=== PATIENT | female | born 1985 | race Caucasian/White ===

== ENCOUNTER 2020-02-18 15:39 | Outpatient (CLI) | payer OTHER, SELFPAY ==
--- NOTE | ~2020-02-18 | XR_ITS ---
EXAMINATION: XR soft tissue neck DATE: 02/18/2020 16:09 INDICATION: Right neck pain and swelling. TECHNIQUE: 2 views of the neck soft tissues were obtained. COMPARISON: None. FINDINGS: The adenoids, palatine tonsils, prevertebral soft tissues, epiglottis, and airway are viridiana l. IMPRESSION: 1. Normal neck soft tissues. Reviewed, dictated and finalized at location A.
== END 2020-02-18 15:40 | disposition home or self-care (01) ==
LOC: CHSIMG 15:45
PROVIDERS: PCP Nurse Practitioner Family; Visit Provider Nurse Practitioner Family
DX: R22.1 Localized swelling, mass and lump, neck (principal)
CPT/HCPCS: 70360

== ENCOUNTER 2021-11-22 13:26 | Outpatient (CLI) | payer OTHER, SELFPAY ==
--- NOTE | ~2021-11-22 | US_ITS ---
EXAMINATION: US soft tissue head and neck DATE: 11/22/2021 13:58 INDICATION: Neck swelling. TECHNIQUE: Multiple ultrasound images of the thyroid were obtained. COMPARISON: None. FINDINGS: The right thyroid lobe measures 6.3 x 2.4 x 2.1 cm. The left thyroid lobe measures 5.9 x 2.0 x 1.8 c m. In the right thyroid lobe, there is a 3.3 cm mixed cystic and solid, hypoechoic, wider than tall nodule with smooth margin without echogenic foci (TI-RADS TR3). In the right thyroid lobe, there is a 2.2 cm solid, hypoechoic, wider than tall nodule with smooth margin without echogenic foci (TR4). In the left thyroid lobe, there is a 13 mm solid, hyperechoic, wider than tall nodule with macrocalcifi cation and ill-defined margin (TR4). IMPRESSION: 1. Multinodular goiter. Ultrasound-guided fine-needle aspiration of 2 nodules is recommended. Reviewed, dictated and finalized at location A. IMPRESSION: 1. Multinodular goiter. Ultrasound-guided fine-needle aspiration of 2 nodules i s recommended.
== END 2021-11-22 13:27 | disposition home or self-care (01) ==
LOC: CHSIMG 13:28
PROVIDERS: PCP Family Medicine; Visit Provider Nurse Practitioner Family
DX: R22.1 Localized swelling, mass and lump, neck (principal)
CPT/HCPCS: 76536

== ENCOUNTER 2022-01-10 14:32 | Outpatient (CLI) | payer OTHER, SELFPAY | END 2022-01-10 14:33 | disposition home or self-care (01) | LOC: CHSIMG 14:33 | PROVIDERS: PCP Nurse Practitioner Family; Visit Provider Nurse Practitioner Family | DX: R22.1 Localized swelling, mass and lump, neck (principal) | CPT/HCPCS: 99199 ==

== ENCOUNTER 2022-02-21 13:14 | Outpatient (CLI) | payer OTHER, SELFPAY ==
--- NOTE | ~2022-02-21 | US_ITS ---
CORRECTED REPORT added [place] 02[place]22[place]22 [facility] [place] report was recreated on 02/22/22. Original report was signed by Kahlil Ruiz M.D. on 02/21/2022 16:03 CDT EXAMINATION: US THYROID BIOPSY, US THYROID ADDITIONAL DATE: 02/21/2022 16:02 CDT INDICATION: Enlarged bilateral thyroid lobe nodules TECHNIQUE: The procedure for biopsy of the thyroid nodule and its benefits and risks were explained to the patient. Potential risk included were not limited to bleeding, infection, and nondiagnostic specimen. The neck was prepped and draped in the usual sterile manner. 3 cc 1% lidocaine was used for local anesthesia. 3 passes were made with a 25G needle into bilateral thyroid lesion. Appropriate needle location was documented with continuous sonographic guidance. The specimens were passed to the cytopathologist in the room. All needles were removed and a sterile bandage applied over the biopsy site. The patient tolerated the procedure without immediate complications or complaints. FINDINGS: Subsequent images demonstrate needles advanced into the bilateral lesions for biopsy. IMPRESSION: 1. Successful ultrasound guided biopsy of bilateral thyroid nodules. Please refer to pathology report for final histologic analysis. Reviewed, dictated and finalized at location A. MTDD IMPRESSION: 1. Successful ultrasound guided biopsy of bilateral thyroid nodules. Please r efer to pathology report for final histologic analysis.
== END 2022-02-21 13:15 | disposition home or self-care (01) ==
LOC: CHSIMG 13:16
PROVIDERS: PCP Nurse Practitioner Family; Visit Provider Nurse Practitioner Family
DX: E04.1 Nontoxic single thyroid nodule (principal)
CPT/HCPCS: 10005; 10006; 88173; 88305

== ENCOUNTER 2023-06-28 17:46 | Outpatient (CLI) | payer OTHER, SELFPAY ==
--- NOTE | ~2023-06-28 | XR_ITS ---
EXAMINATION: XR lumbar spine 2-3V DATE: 06/28/2023 18:05 INDICATION: Acute low back pain. Right-sided sciatica. TECHNIQUE: 3 views of lumbar spine were obtained. COMPARISON: None. FINDINGS: Bone alignment is normal. Vertebral body heights and intervertebral disc heights are normal . There are endplate osteophytes at multiple levels. There is multilevel mild facet joint osteoarthri tis. Surgical clips in the right upper quadrant are likely from cholecystectomy. IMPRESSION: 1. Mild lumbar spondylosis. Reviewed, dictated and finalized at location E. [employer] HUMAN SERVICES ASSISTANTS IMPRESSION: 1. Mild lumbar spondylosis.
--- NOTE | ~2023-06-28 | XR_ITS ---
EXAMINATION: XR sacroiliac joints min 3V DATE: 06/28/2023 18:05 INDICATION: Acute low back pain. Right-sided sciatica. TECHNIQUE: 3 views of the sacroiliac joints were obtained. COMPARISON: None. FINDINGS: Bone alignment is normal. No fracture. The sacroiliac joints are normal. There is mild oste oarthritis of the hips. IMPRESSION: 1. Normal sacroiliac joints. Reviewed, dictated and finalized at location E. NT ONBOARDING ANALYST
== END 2023-06-28 17:47 | disposition home or self-care (01) ==
LOC: CHSIMG 17:48
PROVIDERS: PCP Nurse Practitioner Family; Visit Provider Nurse Practitioner Family
DX: M54.41 Lumbago with sciatica, right side (principal); M43.06 Spondylolysis, lumbar region
CPT/HCPCS: 72100; 72202

== ENCOUNTER 2023-07-08 16:42 | Outpatient (RCR) | payer OTHER, SELFPAY ==
--- NOTE | 2023-07-09 07:17 | OPREHPOC ---
Outpatient Therapy Plan of Care This is a Multidisciplinary Plan of Care that may contain components documented by all disciplines (PT, OT, and ST.) PT Problem 1 PT Problem #1 Knowledge Deficit PT Goal 1 Goal The patient will be independent in a home exercise program to continue after discharge from skilled PT. Target Visit 6 PT Problem 2 PT Problem #2 Pain PT Goal 1 Goal The patient will report no greater than 2/ 10 low back pain with daily activities. Target Visit 12 PT Problem 3 PT Problem #3 Impaired Functional Mobil PT Goal 1 Goal The patient will demonstrate 20% or less self perceived disability per the Oswestry Back Index. The patient will demonstrate the ability to lift 25lbs from floor to waist to improve ability to lift household items. 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 Target Visit 12
--- NOTE | 2023-07-09 07:17 | PTOPEVAL1 ---
Assessment and note entered by Nory Carranza DPT Evaluation Information Assessment Status Evaluation Diagnosis Low back pain with radiculopathy Onset 06/11/23 Subjective Information Yi Ny reports that on 06/11/23 she was getting a patient out of bed and and the patient stepped on her R foot as she was turning and she had instant pain that progressed as the day went on. She reports since injury pain has improved since. She reports pain with bending to pick things up, sitting in a chair, walking for long periods of time and has difficulty sleeping. She reports she returns to MD on 07/18/23. She works doing in home care. Reported Pain Level Pain Score 3,0: Self Report Assessment PT Clinical Summary Yi Ny is a 38 year old female who presents with R sided lumbar radiculopathy. She has difficulty with bending to pick things up off the floor, sitting in a chair, walking for long periods of time and has difficulty sleeping. She objectively demonstrates decreased B hip strength, tenderness to B piriformis and decreased LE flexibility. She will benefit from skilled PT to address these limitations and return to [facility] at [facility]. Plan of Care Interventions Electrical Stimulation,Hot Pack/Cold Pack,Manual Therapy,Mechanical Traction,Neuro Re-education, Patient/Caregiver Educati,Therapeutic Activities, Therapeutic Exercise PT Services Indicated Yes Treatment Frequency and 2 times a week for 12 visits Duration These treatments will address the objective and functional deficits as defined above. The patient will be advanced safely and appropriately in order for the patient to progress towards his/her prior level of function. Additional exercises will be introduced and as well as a comprehensive home exercise program upon discharge, if needed, ?to ensure carryover of functional gains achieved in the clinic. This treatment plan has been reviewed and agreement upon by the patient.
--- NOTE | 2023-07-15 13:22 | PCPTNOTE ---
Patient cancelled session today due to her work schedule.
--- NOTE | 2023-07-29 16:48 | PCPTNOTE ---
No call no show this date.
--- NOTE | 2023-09-04 13:10 | PCPTNOTE ---
09/04/23: Pt cx'd secondary to having too much discomfort after having her wisdom teeth cut out this week. -Christine Mejia, PT
--- NOTE | 2024-01-07 11:03 | PCPTNOTE ---
Pt did not return after her evaluation on 07/08/23. She is discharged. -Christine Mejia, PT
== END 2023-07-08 17:59 | disposition home or self-care (01) ==
LOC: CHSPT 16:42
PROVIDERS: Visit Provider Nurse Practitioner Family
DX: M54.41 Lumbago with sciatica, right side (principal)
CPT/HCPCS: 97014; 97110; 97140; 97161; G0283

== ENCOUNTER 2025-02-20 14:17 | Emergency (ER) | payer OTHER, SELFPAY ==
[2025-02-20 14:17] VITALS: BP 139/78; PULSE 84; RESP 16; TEMP 36.6; O2SAT 98
--- OUTSIDE RECORDS SUMMARY | 2025-02-20 14:28 | XMS_ITS | Encounter Summary ---
Author Organization [facility] Address [address] [place] [id number] Care Team Providers Care Php Programmer Name Role Phone Christine Brooks NP Primary Care Provider [phone] Encounter Details Date Type Department Care Team (Late st Contact Info) Description 09/27/2018 Abstract [facility]FL CONVERSION [address] [place] [address] , Generic Conversion, Social History Tobacco Use Types Packs/Day Years Used Date Smoking Tobacco: Never Assessed Comments Unknown Sex and Gender Information Value Date Recorded Sex Assigned at Not on file Legal Sex Female 8:31 PM CDT Gender Identity Not on file Sexual Orientation Not on file documented as of this encounter Plan of Treatment Not on file documented as of this encounter Visit Diagnoses Not on filedocumented in this encounter Care Teams Php Programmer Relationship Specialty Start Date End Date Christine Brooks NP [address] [id number] PCP - General Nurse Practitioner Family 10/08/21 documented as of this encounter
--- NOTE | 2025-02-20 14:39 | ECG_ITS ---
Test Date: 2025-02-20 15:15:07 Measurements Intervals [place] Rate: 78 P: 71 NM: 120 QRS: 53 QRSD: 90 T: 51 QT: 397 QTc: 454 Interpretive Statements SINUS RHYTHM POSSIBLE LEFT ATRIAL ENLARGEMENT [-0.1mV P-WAVE IN V1/V2] No previous ECG available for comparison Electronically Signed On 02-21-2025 03:10:51 IMPORT/EXPORT FREIGHT FORWARDER by Bradley Granda M.D.
--- NOTE | 2025-02-20 14:44 | PC.NURSE ---
Accompanied Dr. Guillermo for contracting executive of pt exam and interview.
[2025-02-20 15:00] LABS: Hematocrit 43.8 % (35.0-49.0); Hemoglobin 14.6 g/dL (12.0-15.0); Immature Granulocyte Percent A 0.4 % (0.0-0.0); Lymphocytes Absolute Auto 2.87 K/mm3 (1.10-4.50); Mean Corpuscular HGB Conc 33.3 g/dL (32-36); Mean Corpuscular Hemoglobin 29.2 pg (27.0-31.0); Mean Corpuscular Volume 87.6 fL (78.0-102.0); Nucleated Red Blood Cells Absolute Auto 0.00 K/mm3 (0.00-0.00); Nucleated Red Blood Cells Perc 0.0 % (0-0.0); Platelet Count Result 356 K/mm3 (150-420); Red Blood Count 5.00 M/mm3 (4.20-5.40); White Blood Count 15.0 K/mm3 (4.8-10.8)
[2025-02-20 15:11] LABS: Alanine Aminotransferase 17 U/L (6-35); Albumin Level 4.8 g/dL (3.5-5.1); Alkaline Phosphatase 64 U/L (38-126); Anion Gap 9 mmol/L (4-12); Aspartate Amino Transferase 21 U/L (14-36); Bilirubin,Total 0.8 mg/dL (0.2-1.3); Blood Urea Nitrogen 8 mg/dL (7-17); Calcium 9.6 mg/dL (8.4-10.2); Carbon Dioxide 26 mmol/L (22-30); Chloride 104 mmol/L (98-107); Estimated CRCL calculation 79 ml/min; Estimated Glomerular Filt Rate > 60; Glucose 96 mg/dL (65-110); Osmolality Calculated 286 mOsm/kg (285-295); Potassium 3.7 mmol/L (3.4-5.0); Sodium 139 mmol/L (137-145); Total Protein 10.1 g/dL (6.3-8.2)
[2025-02-20 15:26] LABS: Add Urine Microscopic? NO; Appearance Urine Clear (Clear); Glucose Urine UA Negative (Negative); Leukocyte Esterase Ur Negative LEU/UL (Negative); Nitrate Urine Negative (Negative); Specific Grav Ur 1.020 (1.010-1.020)
[2025-02-20] MEDS: SODIUM CHLORIDE 0.9% IV 1,000 ML 999 ML IV CONT (15:27)
[2025-02-20] MEDS: AZITHROMYCIN 250 MG TABLET 1000 MG PO (15:27)
[2025-02-20] MEDS: cefTRIAXone 1 GM in SODIUM CHLORIDE 0.9% IV 50 ML 100 ML IVPB (15:28)
[2025-02-20 15:30] VITALS: BP 118/65; PULSE 81; RESP 16; TEMP 36.9; O2SAT 98
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
[2025-02-20 15:37] LABS: HIV 1 P24 AG Negative (Negative); HIV 1/2 AB Negative (Negative)
[2025-02-20 16:35] VITALS: BP 120/68; PULSE 77; RESP 18; O2SAT 99
[2025-02-22 10:35] LABS: Syphilis IgG/IgM Antibody Non-Reactive (Nonreactive)
== END 2025-02-20 16:35 | disposition home or self-care (01) ==
PROVIDERS: Emergency Provider Emergency Medicine; PCP Nurse Practitioner Family
DX: R11.2 Nausea with vomiting, unspecified (principal); T50.905A Adverse effect of unspecified drugs, medicaments and biological substances, initial encounter; Z20.2 Contact with and (suspected) exposure to infections with a predominantly sexual mode of transmission; Z11.3 Encounter for screening for infections with a predominantly sexual mode of transmission
CPT/HCPCS: 36415; 80053; 81003; 85025; 86593; 87491; 87591; 87806; 93005; 96361; 96365; 99284; A9270; J0696; J7030

== ENCOUNTER 2025-02-24 19:02 | Emergency (ER) | payer OTHER, SELFPAY ==
[2025-02-24] VITALS (14 sets, daily range): BP systolic 94–165; BP diastolic 67–91; PULSE 66–102; RESP 16–28; TEMP 36.4–37; O2SAT 95–100
--- NOTE | ~2025-02-24 | XR_ITS ---
EXAMINATION: XR chest 1V portable 02/24/2025 19:37 INDICATION: Dyspnea PROCEDURE: AP portable chest COMPARISON: Comparison to multiple prior studies sequentially, with oldest reviewed study dated 11/02/2020. FINDINGS: The lungs are clear. The cardiomediastinal silhouette is within normal limits. There are no pleural effusions. There is no pneumothorax suspected. IMPRESSION: 1: NO ACUTE CARDIOPULMONARY DISEASE. Reviewed, dictated and finalized at location O. ER BLANKET
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
--- NOTE | 2025-02-24 19:05 | PC.NURSE ---
SEVERAL ALTERNATIVE ATTEMPTS HAVE BEEN MADE TO DEESCALATE PATIENT BEHAVIOR WITHOUT SUCCESS BEFORE MEDICATIONS WERE GIVEN AND RESTRAINTS WERE APPLIED.
--- NOTE | 2025-02-24 19:10 | ECG_ITS ---
Test Date: 2025-02-24 19:38:13 Measurements Intervals [place] Rate: 83 P: 80 [place]: 124 QRS: 74 QRSD: 98 T: 66 QT: 358 QTc: 422 Interpretive Statements SINUS RHYTHM POSSIBLE LEFT ATRIAL ENLARGEMENT [-0.1mV P-WAVE IN V1/V2] Compared to ECG 02/20/2025 15:15:07 No significant changes Electronically Signed On 02-25-2025 08:52:17 TAPER AND FLOATER by Bc Sue M.D.
--- NOTE | 2025-02-24 19:10 | PC.NURSE ---
PATIENT IS CURRENTLY RESTING ON STRETCHER AFTER KETAMINE INJECTIONS. NO LONGER SCREAMING, NO LONGER FIGHTING. PATIENT WILL TURN HER HEAD AND LOOK AT YOU IF YOU SAY HER NAME. PATIENT IS ALLOWING STAFF TO START IV LINE AND CHANGE HER INTO A GOWN.
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
[2025-02-24] MEDS: SODIUM CHLORIDE 0.9% IV 2,000 ML 999 ML IV CONT (19:23)
[2025-02-24 19:31] LABS: HCO3 ABG 20.3 mmol/L (23-29); Modified Allen's Test Pass; Oxygen Saturation ABG 93.7 % (95-97); PCO2 ABG 31.2 mmHg (35-45); PO2 ABG 70.7 mmHg (80-90); Site Drawn LEFT RADIAL
[2025-02-24 19:31] LABS: Hematocrit 39.4 % (35.0-49.0); Hemoglobin 13.2 g/dL (12.0-15.0); Immature Granulocyte Percent A 0.6 % (0.0-0.0); Lymphocytes Absolute Auto 2.87 K/mm3 (1.10-4.50); Mean Corpuscular HGB Conc 33.5 g/dL (32-36); Mean Corpuscular Hemoglobin 29.5 pg (27.0-31.0); Mean Corpuscular Volume 88.1 fL (78.0-102.0); Nucleated Red Blood Cells Absolute Auto 0.00 K/mm3 (0.00-0.00); Nucleated Red Blood Cells Perc 0.0 % (0-0.0); Platelet Count Result 377 K/mm3 (150-420); Red Blood Count 4.47 M/mm3 (4.20-5.40); White Blood Count 15.5 K/mm3 (4.8-10.8)
--- NOTE | 2025-02-24 19:32 | PC.NURSE ---
XRAY AT THE BEDSIDE
[2025-02-24 19:47] LABS: Acetaminophen < 10 ug/mL (10-30); Salicylate < 1.0 mg/dL (2-20)
[2025-02-24 19:49] LABS: INR 1.0; Partial Thromboplastin Time 26.3 Sec (23.9-30.70); Prothrombin Time 11.1 Seconds (9.50-12.1)
[2025-02-24] MEDS: KETAMINE HCL (*CRX) 500 MG/10 ML VIAL 200 MG IM (19:49)
--- NOTE | 2025-02-24 20:06 | PC.NURSE ---
BOYFRIEND AT THE BEDSIDE. PATIENT AGITATED. ALL RESTRAINTS HAVE BEEN REMOVED AT 1950. PATIENT IS ALERT AND TALKING WITH BOYFRIEND
--- NOTE | 2025-02-24 20:19 | PC.NURSE ---
PATIENT IS AGITATED. TALKING ON THE PHONE WITH MOTHER. BOYFRIEND AT HER SIDE. PATIENT IS ANGRY THAT HER CLOTHES WERE CUT OFF. WANTS TO LEAVE. DR CROFT TOLD PATIENT THAT ONCE ALL THE BLOOD WORK COMES BACK THERE IS A POSSIBILITY OF DISCHARGE. PATIENT DENIES SI OR HI
[2025-02-24 20:21] LABS: Anion Gap 17 mmol/L (4-12); Blood Urea Nitrogen 13 mg/dL (7-17); Carbon Dioxide 21 mmol/L (22-30); Chloride 106 mmol/L (98-107); Estimated CRCL calculation 59 ml/min; Estimated Glomerular Filt Rate > 60; Glucose 120 mg/dL (65-110); Osmolality Calculated 299 mOsm/kg (285-295); Potassium 3.2 mmol/L (3.4-5.0); Sodium 144 mmol/L (137-145)
[2025-02-24 20:22] LABS: Alanine Aminotransferase 42 U/L (6-35); Albumin Level 4.9 g/dL (3.5-5.1); Alkaline Phosphatase 68 U/L (38-126); Aspartate Amino Transferase 42 U/L (14-36); Bilirubin,Total 1.6 mg/dL (0.2-1.3); Calcium 9.8 mg/dL (8.4-10.2); Creatine Kinase 580 U/L (30-135); Thyroid Stimulating Hormone 3.590 uIU/mL (0.465-4.680); Total Protein 8.1 g/dL (6.3-8.2)
--- NOTE | 2025-02-24 20:29 | PC.NURSE ---
PATIENT REPEATING QUESTIONS. PATIENT HAS BEEN TOLD SEVERAL TIMES ABOUT REASON FOR IV FLUIDS AND THAT BLOOD WORK IS STILL PENDING
--- NOTE | 2025-02-24 20:33 | PC.NURSE ---
OFFERED FLUIDS AND FOOD TO EAT. REFUSED AT THIS TIME. CURRENTLY HAS ICE CHIPS. BOYFRIEND IS AT HER SIDE
--- NOTE | 2025-02-24 20:39 | PC.NURSE ---
PATIENT STARTED TO VOMIT. DR CROFT NOTIFIED.
--- NOTE | 2025-02-24 20:41 | PC.NURSE ---
PATIENT IS CURRENTLY REFUSING THE ZOFRAN
--- NOTE | 2025-02-24 20:49 | PC.NURSE ---
ADDITIONAL WARM BLANKETS GIVEN
--- NOTE | 2025-02-24 21:00 | PC.NURSE ---
PATIENT WAS AMBULATED DOWN TO THE BATHROOM. PATIENT HAD URINE COLLECTION CONTAINER PLACED INTO THE TOILET TO COLLECT URINE SAMPLE. PATIENT DUMPED URINE SAMPLE OUT INTO THE TOILET.
--- NOTE | 2025-02-24 21:13 | PC.NURSE ---
DR CROFT AT THE BEDSIDE
--- NOTE | 2025-02-24 21:17 | PC.NURSE ---
PATIENT AMBULATED DOWN TO THE BATHROOM TO TRY AND GIVE URINE SAMPLE. BOYFRIEND AT HER SIDE. MOTHER WAITING IN THE ROOM.
--- NOTE | 2025-02-24 21:36 | PC.NURSE ---
PATIENT AMBULATED BACK TO ROOM FROM BATHROOM. BOYFRIEND AT HER SIDE
--- NOTE | 2025-02-24 21:38 | PC.NURSE ---
PATIENT REFUSING TO GIVE URINE SAMPLE. WANTS TO LEAVE NOW. DR CROFT HAS BEEN NOTIFIED
--- OUTSIDE RECORDS SUMMARY | 2025-02-25 15:42 | XMS_ITS | Clinical Summary ---
Author Organization [facility] Address [address] [place] [id number] Care Team Providers Care Supervisory Training Specialist Name Role Phone CeciliaChristine Sandra RICKY Primary Care Provider [phone]- [phone] Allergies No known active allergies Medications SUBOXONE 8-2 MG FILM Take 1 Film by mouth 3 (three) times a day. 09/27/2021 Active amphetamine-dext roamphetamine 10 MG tablet Take 1 tablet by mouth 4 (four) times daily. 10/06/2021 Active Active Problems No known active problems Social History Tobacco Use Types Packs/Day Years Used Date Smoking Tobacco: Every Day Cigarettes Smokeless Tobacco: Never Alcohol Use Standard Drinks/Week Comments Not Currently 0 (1 standard drink = 0.6 oz pur e alcohol) Comments No Sex and Gender Information Value Date Recorded Sex Assigned at Not on file Legal Sex Female 8:31 PM CDT Gender Identity Not on file Sexual Orientation Not on file Last Filed Vital Signs Vital Sign Reading Time Taken Comments Blood Pressure 128/78 06/14/2023 4:37 PM [employer]INAL [employer]IAISON OFFICER Pulse 77 06/14/2023 4:37 PM [employer]AL [employer]ISON OFFICER Temperature 35.9 C (96.6 F) 06/14/2023 4:37 PM ABORIGINAL LIAISON OFFICER Respiratory Rate 18 06/14/2023 4:37 PM ABORIGINAL LIAISON OFFICER Oxygen Saturation 98% 06/14/2023 4:37 PM ABORIGINAL LIAISON OFFICER Inhaled Oxygen Concentration - - Weight 67 kg (147 lb 12.8 oz) 06/14/2023 4:37 PM ABORIGINAL LIAISON OFFICER Height 160 cm (5' 3) 06/14/2023 4:37 PM ABORIGINAL LIAISON OFFICER Body Mass Index 26.18 06/14/2023 4:37 PM ABORIGINAL LIAISON OFFICER Plan of Treatment Health Maintenance Due Date Last Done Comments Cervical Cancer Screening Pap Smear (Age 30 to 64) Every 3 Years 1983 Annual Physical 1986 DTaP, Tdap and Td Vaccines (5 - Tdap) 11/16/1998 11/15/1998, 05/18/1988, 10/11/1987, Additional history exists Hepatitis B Vaccines (3 of 3 - 3-dose series) 03/07/1999 12/13/1998, 11/15/1998 Hepatitis C 2001 Pneumococcal Vaccine: Pediatrics (0 to 5 Years) and At-Risk Patients (6 to 49 Years) (1 of 2 - PCV) 2002 HPV Vaccines (1 - 3-dose SCDM series) 2010 Cervical Cancer Screening Pap with HPV Testing (Age 30 to 64) Every 5 Years 2013 Cervical Cancer Screening with HPV 2013 Mammogram Screening 2023 COVID-19 Vaccine ( season) 2024 Influenza Adult (#1) 2025 Hepatitis A Vaccines Aged Out No long er eligible based on patient's age to complete this topic Meningococcal B Vaccine Aged Out No l onger eligible based on patient's age to complete this topic Meningococcal Vaccine Aged Out No raheem allyson eligible based on patient's age to complete this topic RSV Immunizations Under 20 Months Aged Out No longer eligible based on patient's age to complete this topic Insurance Care Teams Supervisory Training Specialist Relationship Specialty Start Date End Date Christine Brooks NP [address] [id number] PCP - General Nurse Practitioner Family 10/08/21
--- OUTSIDE RECORDS SUMMARY | 2025-02-25 15:42 | XMS_ITS | Encounter Summary ---
Author Organization [facility] Address [address] [place] [id number] Care Team Providers Care Student Life Dean Name Role Phone Christine Brooks NP Primary Care Provider [phone]- [phone] Encounter Details Date Type Department Care Team (Late st Contact Info) Description 09/27/2018 Abstract [facility]FL CONVERSION [address] [place] [address] , Generic Conversion, Social History Tobacco Use [...] on filedocumented in this encounter Care Teams Student Life Dean Relationship Specialty Start Date End Date Christine Brooks NP [address] [phone] PCP - General Nurse Practitioner Family 10/08/21 documented as of this encounter
== END 2025-02-24 21:40 | disposition home or self-care (01) ==
PROVIDERS: Emergency Provider Emergency Medicine; PCP Nurse Practitioner Family
DX: F32.9 Major depressive disorder, single episode, unspecified (principal); E87.6 Hypokalemia; F41.9 Anxiety disorder, unspecified; R45.1 Restlessness and agitation; Z79.899 Other long term (current) drug therapy
CPT/HCPCS: 36415; 36600; 71045; 80053; 80143; 80179; 82077; 82550; 82805; 82948; 84443; 85025; 85610; 85730; 93005; 96360; 96361; 96372; 99283; J2405; J7030